=== PATIENT | female | born 1960 | race Caucasian/White ===

== ENCOUNTER 2019-05-24 18:32 | Emergency (ER) | payer BC ==
[~2019-05-24] VITALS: Ht 167.6 cm; Wt 95.3 kg
[~2019-05-24 18:32] MED LIST: CELE200C PO; CEPH-568 PO; CYCL-10 PO; CYM30 PO; DULO60CA41 PO; GENTAMICIN EACHEYE; HCT25 PO; HYDR200T80 PO; LEVO112T2 PO; LIDP TP; PREG100C PO; TRAZ50TA54 PO; [UNRECOGNIZED DRUG - OTHER] EACHEYE
[2019-05-24 18:42] VITALS: BP_SYST 133
--- NOTE | 2019-05-24 19:23 | NUR ---
Patient to ER bed 8 to gown for evaluation. Side rails up. Report given to ROB MURDOCK.
--- NOTE | 2019-05-24 19:40 | NUR ---
Pt C/O back pain radiating to the neck and shoulder since yesterday. Has hx of Fibromyalgia, Lupus, HTN, Hyperlipidemia and thyroid disease. Has taken muscle relaxers with no relief. Will continue to monitor.
--- NOTE | 2019-05-24 20:35 | NUR ---
ER Dr. Be at bedside examining patient.
[2019-05-24] MEDS ORDERED: KETOROLAC TROMETHAMINE 60 MG/2 ML VIAL IM ONE (20:45)
--- NOTE | 2019-05-24 20:50 | NUR ---
Patient transported to radiology via wheelchair, accompanied by rad staff.
--- NOTE | 2019-05-24 20:55 | NUR ---
Pt returned in stable condition
--- NOTE | 2019-05-24 21:08 | NUR ---
Ramos posey in [facility] - 05/24/19 at 2109 by [email or web address] MALGORZATA Be at bedside examining patient.
--- NOTE | 2019-05-24 21:09 | NUR ---
Pt has been medicated with Toradol IM for back pain. Will continue to monitor.
[2019-05-24 21:30] LABS: BASOPHILS # (AUTO) 0.1 K/uL (0.0-0.2); BASOPHILS % (AUTO) 0.7 % (0.0-2.0); EOSINOPHILS # (AUTO) 0.1 K/uL (0.0-0.4); EOSINOPHILS % (AUTO) 1.2 % (0.0-4.0); HEMATOCRIT 38.7 % (36-48); HEMOGLOBIN 12.9 g/dL (12.0-16.0); LYMPHOCYTES # (AUTO) 3.4 K/uL (1.0-5.5); LYMPHOCYTES % (AUTO) 27.1 % (20.5-51.5); MEAN CORPUSCULAR HEMOGLOBIN 31 pg (27-31); MEAN CORPUSCULAR HGB CONC 33 % (32-36); MEAN CORPUSCULAR VOLUME 93 fL (79.0-98.0); MONOCYTES # (AUTO) 0.6 K/uL (0.0-1.0); MONOCYTES % (AUTO) 5.2 % (1.7-9.3); NEUTROPHILS # (AUTO) 8.2 K/uL (1.8-7.7); NEUTROPHILS % (AUTO) 65.8 % (40.0-70.0); PLATELET COUNT (AUTO) 269 K/uL (130-430); RED BLOOD CELL COUNT(AUTO) 4.15 MIL/uL (4.2-6.2); RED CELL DISTRIBUTION WIDTH 14.1 % (9.0-15.0); WHITE BLOOD COUNT (AUTO) 12.4 K/uL (4.8-10.8)
[2019-05-24 21:39] LABS: CALCIUM 8.8 mg/dL (8.4-11.0); CREATININE 0.74 mg/dL (0.55-1.30); POTASSIUM 3.9 mmol/L (3.5-5.1)
[2019-05-24 21:43] LABS: ALBUMIN 2.9 g/dL (3.4-4.8); TOTAL BILIRUBIN 0.4 mg/dL (0.0-1.0)
[2019-05-24] MEDS ORDERED: LORazepam 1 MG TABLET PO ONE (22:00)
--- NOTE | 2019-05-24 22:09 | NUR ---
Pt is resting quietly in bed, no acute distress noted at this time. Will continue to monitor.
--- NOTE | 2019-05-24 22:46 | NUR ---
Dr. Be at bedside discussing discharge with patient.
[2019-05-24 22:56] VITALS: BP_SYST 130
--- NOTE | 2019-05-24 22:56 | NUR ---
Patient given written and verbal discharge instructions and verbalizes understanding. ER MD discussed with patient the results and treatment provided. Patient in stable condition. ID arm band removed. Rx of [place] given. Patient educated on pain management and to follow up with PMD. Pain Scale 0. Opportunity for questions provided and answered. Medication side effect fact sheet provided.
== END 2019-05-24 22:56 | disposition home or self-care (01) ==
LOC: SED 18:32
DX: S33.5XXA Sprain of ligaments of lumbar spine, initial encounter (principal); X58.XXXA Exposure to other specified factors, initial encounter; Y93.89 Activity, other specified; Y92.89 Other specified places as the place of occurrence of the external cause; Y99.8 Other external cause status; F17.210 Nicotine dependence, cigarettes, uncomplicated; Z88.0 Allergy status to penicillin; Z88.5 Allergy status to narcotic agent
CPT/HCPCS: 36415; 71045; 72072; 80053; 85025; 96372; 99284; J1885

== ENCOUNTER 2020-03-19 18:51 | Emergency (ER) | payer BC ==
[~2020-03-19] VITALS: Ht 162.6 cm; Wt 90.7 kg
[2020-03-19 18:52] VITALS: BP_SYST 134
[2020-03-19] MEDS ORDERED: NACL 0.9% 1,000 ML IV ONE (18:59)
[2020-03-19] MEDS ORDERED: MORPHINE 4 MG/ML INJ. SYRINGE IVP ONE (19:00)
[2020-03-19] MEDS ORDERED: ONDANSETRON HCL 4 MG/2 ML VIAL IVP ONE (19:00)
--- NOTE | 2020-03-19 19:01 | NUR ---
Patient to ER bed 03 to gown for evaluation. Side rails up.
--- NOTE | 2020-03-19 19:02 | NUR ---
Pt came to ER after she had an insect bit on Saturday causing R eye swelling and redness. Pt c/o pain 05/20, went to [facility] urgent care where she received abx and prednisone.
--- NOTE | 2020-03-19 19:04 | NUR ---
ER at bedside examining patient.
--- NOTE | 2020-03-19 19:06 | NUR ---
REPORT RECIEVED FROM MATHIEU GALLARDO.
--- NOTE | 2020-03-19 19:10 | NUR ---
PORTABLE XRAY AT BEDSIDE.
[2020-03-19] MEDS ORDERED: CLINDAMYCIN 600 MG in D5W 50 ML IV ONE (19:15)
--- NOTE | 2020-03-19 19:18 | NUR ---
# 18 gauge angiocath placed to L AC. Use of asceptic technique. Opsite placed over site. Blood return noted. Blood for lab drawn from site. Flushed with 10 cc of normal saline. No evidence of infiltration noted. Patient tolerated well.
[2020-03-19 19:35] LABS: BASOPHILS # (AUTO) 0.1 K/uL (0.0-0.2); BASOPHILS % (AUTO) 0.4 % (0.0-2.0); EOSINOPHILS % (AUTO) 0.3 % (0.0-4.0); HEMATOCRIT 41.4 % (36-48); HEMOGLOBIN 13.9 g/dL (12.0-16.0); LYMPHOCYTES # (AUTO) 1.5 K/uL (1.0-5.5); LYMPHOCYTES % (AUTO) 11.3 % (20.5-51.5); MEAN CORPUSCULAR HEMOGLOBIN 31 pg (27-31); MEAN CORPUSCULAR HGB CONC 34 % (32-36); MEAN CORPUSCULAR VOLUME 91 fL (79.0-98.0); MONOCYTES # (AUTO) 0.6 K/uL (0.0-1.0); MONOCYTES % (AUTO) 4.3 % (1.7-9.3); NEUTROPHILS # (AUTO) 11.2 K/uL (1.8-7.7); NEUTROPHILS % (AUTO) 83.7 % (40.0-70.0); PLATELET COUNT (AUTO) 355 K/uL (130-430); RED BLOOD CELL COUNT(AUTO) 4.56 MIL/uL (4.2-6.2); RED CELL DISTRIBUTION WIDTH 13.8 % (9.0-15.0); WHITE BLOOD COUNT (AUTO) 13.4 K/uL (4.8-10.8)
[2020-03-19] MEDS ORDERED: FLUORESCEIN SODIUM 1 MG OPHTHALMIC STRIP OP ONE (19:45)
[2020-03-19] MEDS ORDERED: TETRACAINE HCL/PF 0.5% OPHTHALMIC DROPS 4 ML OP ONE (19:45)
[2020-03-19 19:47] LABS: CALCIUM 9.2 mg/dL (8.4-11.0); CREATININE 0.97 mg/dL (0.55-1.30); POTASSIUM 4.2 mmol/L (3.5-5.1)
[2020-03-19 19:54] LABS: ALBUMIN 3.4 g/dL (3.4-4.8); TOTAL BILIRUBIN 0.2 mg/dL (0.0-1.0)
[2020-03-19] MEDS ORDERED: CLINDAMYCIN 600 mg/50mL D5W 50 ML IV ONE (20:09)
[2020-03-19] MEDS ORDERED: IOHEXOL 100 ML IV ONE (20:22)
--- NOTE | 2020-03-19 20:28 | NUR ---
PATIENT OFF UNIT TO [facility] FOR CT WITH CONTRAST VIA GURNEY IN STABLE CONDITION.
--- NOTE | 2020-03-19 20:46 | NUR ---
PATIENT RETURNED FROM CT VIA [place] IN STABLE CONDITION.
--- NOTE | 2020-03-19 21:17 | NUR ---
DR. PRIETO AT BEDSIDE ASSESSING PATIENT.
--- NOTE | 2020-03-19 22:13 | NUR ---
CONTACT: JAQIU SWANSON [phone]. SPOKE WITH JAQUI SWANSON REGARDING FURTHER CARE AND ADMITTING PATIENT TO HOSPITAL.
[2020-03-19] MEDS ORDERED: TOLT2TAB PO (22:35)
[2020-03-19] MEDS ORDERED: LOSA50TA3 PO (22:35)
[2020-03-19] MEDS ORDERED: POTA20TA83 PO (22:35)
[2020-03-19] MEDS ORDERED: METH750T3 PO (22:35)
[2020-03-19] MEDS ORDERED: PITA2TAB2 PO (22:35)
[2020-03-19] MEDS ORDERED: ARMO250T6 PO (22:35)
[2020-03-19] MEDS ORDERED: OMEP40CA33 PO (22:35)
--- NOTE | 2020-03-19 22:35 | NUR ---
Medication reconciliation completed with information provided by patient. Any prior medication reconciliation on file was reviewed and corrected.
--- NOTE | 2020-03-20 00:07 | NUR ---
PATIENT SLEEPING IN BED WITH NO ACUTE DISTRESS. VITAL SIGNS STABLE. WILL CONTINUE TO MONITOR.
[2020-03-20 00:58] VITALS: BP_SYST 126
--- NOTE | 2020-03-20 00:58 | NUR ---
Patient to be transferred to [facility]. Is being transferred due to higher level of care. Receiving facility has accepting physician and available space. ER physician has signed transfer form. Patient or responsible republican has agreed to transfer and signed form. Patient belongings inventoried and will be sent with patient. Copy of nursing notes, lab reports, EKG, Physicians Orders and X-rays to be sent with patient. Report called to MATHIEU HERNANDEZ at receiving facility. [facility] has been called for transfer.
== END 2020-03-20 00:58 | disposition short-term general hospital (02) ==
LOC: SED 18:51
DX: H00.031 Abscess of right upper eyelid (principal); L03.213 Periorbital cellulitis; I10 Essential (primary) hypertension; Z88.0 Allergy status to penicillin; Z88.5 Allergy status to narcotic agent; Z79.899 Other long term (current) drug therapy
CPT/HCPCS: 36415; 70481; 71045; 80053; 83605; 83690; 85025; 87040; 96365; 96375; 99285; J2270; J2405; J3490; J7030; Q9967

== ENCOUNTER 2024-07-17 18:19 | Inpatient (IN) | payer BC ==
[~2024-07-17] VITALS: Ht 167.6 cm; Wt 112.0 kg
[~2024-07-17 18:19] MED LIST changes: +ARMO250T6 PO; -CEPH-568 PO; -CYCL-10 PO; -DULO60CA41 PO; +DULO60CA42 PO; -GENTAMICIN EACHEYE; -HCT25 PO; -HYDR200T80 PO; -LIDP TP; +LOSA-413 PO; +METH-634 PO; +OMEP40CA20 PO; +PITA2TAB2 PO; +POTA-197 PO; +TOLT2TAB18 PO; -TRAZ50TA54 PO; -[UNRECOGNIZED DRUG - OTHER] EACHEYE
[2024-07-17 18:28] VITALS: BP_SYST 91; PULSE 117; RESP 24; O2SAT 99
[2024-07-17 20:05] LABS: BASOPHILS # (AUTO) 0.1 K/uL (0.0-0.2); BASOPHILS % (AUTO) 1.1 % (0.0-2.0); HEMATOCRIT 46.5 % (36-48); HEMOGLOBIN 15.5 g/dL (12.0-16.0); LYMPHOCYTES % (AUTO) 33.4 % (20.5-51.5); MEAN CORPUSCULAR HEMOGLOBIN 32 pg (27-31); MEAN CORPUSCULAR HGB CONC 33 % (32-36); MEAN CORPUSCULAR VOLUME 95 fL (79.0-98.0); MONOCYTES # (AUTO) 0.6 K/uL (0.0-1.0); MONOCYTES % (AUTO) 5.4 % (1.7-9.3); NEUTROPHILS # (AUTO) 7.2 K/uL (1.8-7.7); NEUTROPHILS % (AUTO) 60.1 % (40.0-70.0); PLATELET COUNT (AUTO) 280 K/uL (130-430); RED BLOOD CELL COUNT(AUTO) 4.87 MIL/uL (4.2-6.2); RED CELL DISTRIBUTION WIDTH 14.5 % (9.0-15.0); WHITE BLOOD COUNT (AUTO) 11.9 K/uL (4.8-10.8)
[2024-07-17 20:22] LABS: ANION GAP 10 (5-15); CALCIUM 9.7 mg/dL (8.4-11.0); CARBON DIOXIDE 28 mmol/L (23-29); CHLORIDE 101 mmol/L (98-107); CREATININE 1.67 mg/dL (0.55-1.30); GFR AFRICAN AMERICAN 40 mL/min (>90); GLUCOSE 104 mg/dL (74-106); SODIUM SERUM 139 mmol/L (136-145); UREA NITROGEN, BLOOD 30 mg/dL (8-21)
[2024-07-17 20:23] LABS: GFR NON AFRICAN-AMERICAN 33 mL/min (>90)
[2024-07-17] MEDS: dilTIAZem HCL IVP 5 MG/ML VIAL IVP ONE (21:28)
[2024-07-17] MEDS ORDERED: ONDANSETRON HCL 4 MG/2 ML VIAL IVP PRN (21:30)
[2024-07-17] MEDS ORDERED: LORazepam 2 MG/ML VIAL IVP PRN (21:30)
[2024-07-17] MEDS: NACL 0.9% 1,000 ML IV SCH (22:26)
[2024-07-17] MEDS: METOPROLOL TARTRATE 25 MG TABLET PO SCH (22:27)
[2024-07-18] VITALS (9 sets, daily range): BP systolic 92–120; PULSE 56–106; RESP 15–18; TEMP 96.4–97.6; O2SAT 93–99
[2024-07-18] MEDS: METOPROLOL TARTRATE 25 MG TABLET PO ONE (04:37)
[2024-07-18 05:15] LABS: BASOPHILS % (AUTO) 0.2 % (0.0-2.0); HEMATOCRIT 44.6 % (36-48); HEMOGLOBIN 14.9 g/dL (12.0-16.0); LYMPHOCYTES # (AUTO) 1.1 K/uL (1.0-5.5); LYMPHOCYTES % (AUTO) 13.4 % (20.5-51.5); MEAN CORPUSCULAR HEMOGLOBIN 32 pg (27-31); MEAN CORPUSCULAR HGB CONC 34 % (32-36); MEAN CORPUSCULAR VOLUME 96 fL (79.0-98.0); MONOCYTES # (AUTO) 0.4 K/uL (0.0-1.0); MONOCYTES % (AUTO) 5.1 % (1.7-9.3); NEUTROPHILS # (AUTO) 6.7 K/uL (1.8-7.7); NEUTROPHILS % (AUTO) 81.3 % (40.0-70.0); PLATELET COUNT (AUTO) 236 K/uL (130-430); RED BLOOD CELL COUNT(AUTO) 4.62 MIL/uL (4.2-6.2); RED CELL DISTRIBUTION WIDTH 14.3 % (9.0-15.0); WHITE BLOOD COUNT (AUTO) 8.2 K/uL (4.8-10.8)
[2024-07-18 05:32] LABS: ALBUMIN 3.2 g/dL (3.4-4.8); CALCIUM 9.2 mg/dL (8.4-11.0); CREATININE 1.42 mg/dL (0.55-1.30); PHOSPHORUS 4.8 mg/dL (2.7-4.5); POTASSIUM 3.7 mmol/L (3.5-5.1); TOTAL BILIRUBIN 0.5 mg/dL (0.0-1.0); TOTAL PROTEIN, SERUM 6.5 g/dL (6.4-8.3)
[2024-07-18] MEDS: LEVOTHYROXINE SODIUM 0.112 MG TABLET PO SCH (06:41)
[2024-07-18] MEDS: PANTOPRAZOLE SODIUM 40 MG TAB PO SCH (07:25)
[2024-07-18] MEDS ORDERED: ENOXAPARIN SODIUM 40 MG/0.4 ML SYRINGE SUBCUT SCH (09:00)
[2024-07-18] MEDS ORDERED: LOSARTAN POTASSIUM 50 MG TABLET (COZAAR) PO SCH (09:00)
[2024-07-18 09:22] LABS: CHOLESTEROL 298 mg/dL (<200); HDL CHOLESTEROL 50 mg/dL (>55); TRIGLYCERIDES 247 mg/dL (30-150)
[2024-07-18] MEDS: methocarbamoL 500 MG TABLET PO SCH (10:01)
[2024-07-18] MEDS: LOSARTAN POTASSIUM 50 MG TABLET (COZAAR) PO ONE (10:02)
[2024-07-18] MEDS: DULoxetine HCL 30 MG CAPSULE.DR (CYMBALTA) PO SCH (10:02)
[2024-07-18 10:58] LABS: INR 1.1 (0.8-1.2); PROTHROMBIN TIME 11.6 SECS (9.5-12.5)
[2024-07-18 11:54] LABS: INFLUENZA TYPE A Negative (NEGATIVE); INFLUENZA TYPE B NEGATIVE (NEGATIVE)
[2024-07-18 12:03] LABS: COVID19 ANTIGEN SOFIA FIA POSITIVE (NEGATIVE)
[2024-07-18 16:03] LABS: BILIRUBIN,URINE NEGATIVE (NEGATIVE); BLOOD, URINE 1+ (NEGATIVE); COLOR,URINE YELLOW (YELLOW); GLUCOSE,URINE 1+ (NEGATIVE); KETONES,URINE NEGATIVE (NEGATIVE); LEUKOCYTE ESTERASE ,URINE NEGATIVE (NEGATIVE); NITRITE, URINE NEGATIVE (NEGATIVE); PROTEIN URINE NEGATIVE (NEGATIVE); UROBILINOGEN,URINE 0.2 (0.2-1.0)
[2024-07-18 16:11] LABS: CLARITY/URINE SLIGHTLY CLOUDY (CLEAR)
[2024-07-18 16:31] LABS: BACTERIA,URINE RARE /HPF (None Seen); MUCUS,URINE None Seen /LPF (None Seen); RBC,URINE 0-3 /HPF (0-3); WBC,URINE 0-3 /HPF (0-3)
[2024-07-18] MEDS: ACETAMINOPHEN 325 MG TABLET PO PRN (17:27)
[2024-07-18] MEDS: RIVAROXABAN 10 MG TABLET PO SCH (17:34)
[2024-07-18] MEDS: ALBUTEROL SULFATE 0.083% 2.5 MG/3 ML VIAL.NEB INH ONE (17:53)
[2024-07-19] VITALS: BP_SYST 135; PULSE 89; RESP 18; TEMP 98.1; O2SAT 96
[2024-07-19 07:33] LABS: BASOPHILS % (AUTO) 0.4 % (0.0-2.0); HEMATOCRIT 45.2 % (36-48); HEMOGLOBIN 15.2 g/dL (12.0-16.0); LYMPHOCYTES # (AUTO) 1.7 K/uL (1.0-5.5); MEAN CORPUSCULAR HEMOGLOBIN 32 pg (27-31); MEAN CORPUSCULAR HGB CONC 34 % (32-36); MEAN CORPUSCULAR VOLUME 96 fL (79.0-98.0); MONOCYTES # (AUTO) 0.7 K/uL (0.0-1.0); MONOCYTES % (AUTO) 12.5 % (1.7-9.3); NEUTROPHILS # (AUTO) 3.3 K/uL (1.8-7.7); NEUTROPHILS % (AUTO) 58.1 % (40.0-70.0); PLATELET COUNT (AUTO) 222 K/uL (130-430); RED BLOOD CELL COUNT(AUTO) 4.71 MIL/uL (4.2-6.2); RED CELL DISTRIBUTION WIDTH 14.3 % (9.0-15.0); WHITE BLOOD COUNT (AUTO) 5.7 K/uL (4.8-10.8)
[2024-07-19 07:47] LABS: ALBUMIN 3.1 g/dL (3.4-4.8); POTASSIUM 3.9 mmol/L (3.5-5.1); TOTAL BILIRUBIN 0.3 mg/dL (0.0-1.0); TOTAL PROTEIN, SERUM 6.6 g/dL (6.4-8.3)
[2024-07-19 08:04] VITALS: BP_SYST 111; PULSE 108; RESP 20; TEMP 96.8; O2SAT 99
[2024-07-19] MEDS: FUROSEMIDE 40 MG TABLET PO SCH (09:32)
[2024-07-19] MEDS: METOPROLOL SUCCINATE 50 MG TAB.SR.24H (TOPROL XL) PO SCH (09:32)
[2024-07-19] MEDS: LOSARTAN POTASSIUM 50 MG TABLET (COZAAR) PO SCH (09:33)
[2024-07-19 10:23] VITALS: O2SAT 100
[2024-07-19 13:22] VITALS: BP_SYST 124; PULSE 98; RESP 18; TEMP 97.2; O2SAT 95
[2024-07-19 13:51] VITALS: O2SAT 99
[2024-07-19] MEDS: ALBUTEROL SULFATE 0.083% 2.5 MG/3 ML VIAL.NEB INH PRN (13:51)
[2024-07-19] MEDS ORDERED: RIVAROXABAN 10 MG TABLET PO SCH ×2 (18:00)
[2024-07-21 01:06] LABS: HEPATITIS C VIRUS AB Non Reactive (Non Reactive)
== END 2024-07-19 15:20 | disposition left against medical advice (07) | DRG 682 ==
LOC: SED 18:19 → STU 21:27
PROVIDERS: ADMIT Student in an Organized Health Care Education/Training Program; ATTEND Student in an Organized Health Care Education/Training Program
DX: N17.0 Acute kidney failure with tubular necrosis (principal); U07.1 COVID-19; I50.30 Unspecified diastolic (congestive) heart failure; I48.91 Unspecified atrial fibrillation; E66.01 Morbid (severe) obesity due to excess calories; F41.9 Anxiety disorder, unspecified; G89.4 Chronic pain syndrome; I11.0 Hypertensive heart disease with heart failure; J44.9 Chronic obstructive pulmonary disease, unspecified; Z53.29 Procedure and treatment not carried out because of patient's decision for other reasons; N28.9 Disorder of kidney and ureter, unspecified; Z79.01 Long term (current) use of anticoagulants; Z79.84 Long term (current) use of oral hypoglycemic drugs; Z79.899 Other long term (current) drug therapy; Z87.891 Personal history of nicotine dependence; Z90.710 Acquired absence of both cervix and uterus; Z90.49 Acquired absence of other specified parts of digestive tract; Z68.39 Body mass index [BMI] 39.0-39.9, adult; R07.89 Other chest pain
CPT/HCPCS: 36415; 71045; 80048; 80053; 80061; 81000; 81001; 81015; 83735; 83880; 84100; 84443; 84484; 85025; 85610; 85651; 86706; 86803; 93005; 93306; 94640; 94760; 97116-GP; 97530-GP; 99285; G0378; J1650; J3490